=== PATIENT | female | born 1945 | race Caucasian/White ===

== ENCOUNTER 2017-12-20 20:46 | Inpatient (IN) | payer OTHER ==
[2017-12-20 21:04] LABS: ADD MAN DIFF? NO
[2017-12-20] MEDS: LEVALBUTEROL (NEB) 1.25 MG/0.5 ML AMP HHN (21:04)
[2017-12-20 21:06] LABS: WHITE BLOOD COUNT 16.2 10^3/ul (4.8-10.8)
[2017-12-20 21:06] LABS: ABNORMAL IP MESSAGE 1; HEMATOCRIT 43.1 % (37.0-47.0); HEMOGLOBIN 13.9 g/dl (12.0-16.0); MEAN CORPUSCULAR HEMOGLOBIN 29.3 pg (29.0-33.0); MEAN CORPUSCULAR HGB CONC 32.3 g/dl (32.0-37.0); MEAN CORPUSCULAR VOLUME 90.9 fl (82.0-101.0); MEAN PLATELET VOLUME 10.5 fl (7.4-10.4); PLATELET COUNT 367 10^3/UL (140-415); RED BLOOD COUNT 4.74 10^6/ul (4.20-5.40); RED CELL DISTRIBUTION WIDTH 13.4 % (11.5-14.5)
[2017-12-20 21:12] LABS: POSITIVE DIFF @See below
[2017-12-20] MEDS: LORAZEPAM 2 MG INJ IV (21:15)
[2017-12-20 21:29] LABS: ANION GAP 24 (8-16); BLOOD UREA NITROGEN 12 mg/dl (7-20); CALCIUM 9.3 mg/dl (8.4-10.2); CARBON DIOXIDE 16 mmol/L (21-31); CHLORIDE 101 mmol/L (97-110); CREATININE 0.97 mg/dl (0.44-1.00); GLUCOSE 356 mg/dl (70-220); SODIUM 137 mmol/L (135-144)
[2017-12-20 21:40] LABS: B-TYPE NATRIURETIC PEPTIDE 124 PG/ML (0-125); TROPONIN-I 0.115 ng/ml (0.000-0.120)
[2017-12-20 21:46] LABS: AADO2 Arterial 96.2 mmHg (7.0-24.0); Arterial Base Excess -13.4 mmol/L (-3.0-3); Arterial Blood Gas Oxygen Sat 93.9 mmHG (95.0-100.0); Arterial COHb 0.1 % (0.0-3.0); Arterial Fraction of Oxyhgb 93.5 % (93.0-99.0); Arterial MetHb 0.3 % (0.0-1.5); Arterial Total Hemglobin 14.8 g/dl (12.0-18.0); Arterial pCO2 43.6 mmhg (35-45); MODE NASAL CANNULA; Site Right Brachial
[2017-12-20] MEDS: SOD CHLORIDE 0.9% 100 ML (22:01)
[2017-12-20] MEDS: IOHEXOL 100 ML (22:01)
[2017-12-20 22:27] LABS: ANISOCYTOSIS 1+ (0-0); BAND NEUTROPHILS #M 0.6 10^3/ul (0.0-0.6); BAND NEUTROPHILS % (M) 4 % (0-4); EOSINOPHILS % (M) 1 % (0-7); LYMPHOCYTES #M 6.4 10^3/ul (0.8-2.9); LYMPHOCYTES % (M) 40 % (15-51); MONOCYTE #M 0.8 10^3/ul (0.3-0.9); MONOCYTES % (M) 5 % (0-11); PLATELET ESTIMATE NORMAL; POIKILOCYTOSIS 1+ (0-0); REACTIVE LYMPHOCYTES #M 0.4 10^3/ul (0.0-0.0); REACTIVE LYMPHOCYTES% (M) 3 % (0-0); SEG NEUT #M 7.7 10^3/ul (1.6-7.5); SEGMENTED NEUTROPHILS (M) % 47 % (39-77); SMUDGE%M 10 % (0-0)
[2017-12-20] MEDS ORDERED: SODIUM CHLORIDE 0.9% 1L BAG IV* (22:35)
[2017-12-20] MEDS ORDERED: SOD CHLORIDE 0.9% 1,000 ML IV (23:00)
[2017-12-20] MEDS: CEFEPIME 2GM/50 ML (PMX) 50 ML IVPB (23:05)
[2017-12-20 23:26] LABS: INR 0.92; PROTIME 12.4 Sec (11.9-14.9)
[2017-12-20 23:27] LABS: PARTIAL THROMBOPLASTIN TIME 24.2 Sec (25.0-35.0)
[2017-12-20 23:39] LABS: ALANINE AMINOTRANSFERASE 28 IU/L (13-69); ALBUMIN 3.7 g/dl (3.3-4.9); ALBUMIN/GLOBULIN RATIO 1.37; ALKALINE PHOSPHATASE 74 IU/L (42-121); ANION GAP 18 (8-16); ASPARTATE AMINO TRANSFERASE 50 IU/L (15-46); BILIRUBIN,INDIRECT 0.3 mg/dl (0-1.1); BILIRUBIN,TOTAL 0.3 mg/dl (0.2-1.3); BLOOD UREA NITROGEN 14 mg/dl (7-20); CALCIUM 9.2 mg/dl (8.4-10.2); CARBON DIOXIDE 23 mmol/L (21-31); CHLORIDE 97 mmol/L (97-110); CREATININE 0.94 mg/dl (0.44-1.00); GLUCOSE 300 mg/dl (70-220); POTASSIUM 3.4 mmol/L (3.5-5.1); SODIUM 135 mmol/L (135-144); TOTAL PROTEIN 6.4 g/dl (6.1-8.1)
[2017-12-20 23:40] LABS: LACTIC ACID 5.9 mmol/L (0.5-2.0)
[2017-12-20 23:54] LABS: Arterial Base Excess -8.6 mmol/L (-3.0-3); Arterial Blood Gas Oxygen Sat 95.1 mmHG (95.0-100.0); Arterial COHb 0 % (0.0-3.0); Arterial Fraction of Oxyhgb 94.9 % (93.0-99.0); Arterial HCO3 15.9 mmol/L (22.0-26.0); Arterial MetHb 0.2 % (0.0-1.5); Arterial Total Hemglobin 15.3 g/dl (12.0-18.0); Arterial pCO2 30.5 mmhg (35-45); Blood Gas IEPAP 15/5; Blood Gas PS 10; MODE MASK - BIPAP; Site Right Brachial
[2017-12-21] MEDS ORDERED: BISACODYL (EC) 5 MG TAB PO (00:30)
[2017-12-21] MEDS ORDERED: ACETAMINOPHEN 650MG/20.3ML CUP PO (00:30)
[2017-12-21] MEDS ORDERED: ONDANSETRON 4 MG INJ IV (00:30)
[2017-12-21] MEDS ORDERED: DOCUSATE SODIUM 100 MG CAP PO (00:30)
[2017-12-21] MEDS ORDERED: GLUCOSE GEL 15 GRAM TUBE PO ×2 (01:00)
[2017-12-21] MEDS ORDERED: GLUCOSE GEL 15 GRAM TUBE BUCCAL (01:00)
[2017-12-21] MEDS ORDERED: GLUCAGON 1 MG INJ IM (01:00)
[2017-12-21] MEDS ORDERED: DEXTROSE 50% 50 ML SYRINGE IV ×2 (01:00)
[2017-12-21] MEDS ORDERED: VANCOMYCIN IV PER PHARMACY XX (01:30)
[2017-12-21] MEDS: LEVALBUTEROL (NEB) 0.63 MG/3 ML AMP HHN ×4 (01:40→13:00)
[2017-12-21] MEDS: SOD CHLORIDE 0.9% 1,000 ML IV (01:46)
[2017-12-21] MEDS: ALBUMIN HUMAN 25% 100 ML IV ×2 (01:47→03:45)
[2017-12-21] MEDS: METHYLPREDNISOLONE 40 MG INJ IV ×3 (01:48→20:50)
[2017-12-21] MEDS: LORAZEPAM 2 MG INJ IV ×4 (01:48→21:47)
[2017-12-21] MEDS ORDERED: ACCU-CHEK XX (02:00)
[2017-12-21] MEDS: POTASSIUM CHLORIDE (SR) 20 MEQ TAB PO (02:02)
[2017-12-21] MEDS: VANCOMYCIN 1.25 GM in SOD CHLORIDE 0.9% 250 ML IVPB (02:05)
[2017-12-21] MEDS: INSULIN REGULAR, HUMAN 100 UNIT/1 ML 3ML VIAL IV (02:06)
[2017-12-21] MEDS: INSULIN ASPART [NOVOLOG] 3 ML PEN SC ×6 (02:07→21:00)
[2017-12-21 02:25] LABS: LACTIC ACID 5.4 mmol/L (0.5-2.0)
[2017-12-21] MEDS: PANTOPRAZOLE 40 MG INJ IV (05:02)
[2017-12-21] MEDS: SOD CHLORIDE 0.9% 500 ML IV ×3 (05:03→23:48)
[2017-12-21 05:39] LABS: ADD MAN DIFF? NO
[2017-12-21 05:41] LABS: WHITE BLOOD COUNT 14.3 10^3/ul (4.8-10.8)
[2017-12-21 05:41] LABS: BASOPHILS % 0.1 % (0.0-2.0); HEMATOCRIT 34.3 % (37.0-47.0); HEMOGLOBIN 11.4 g/dl (12.0-16.0); LYMPHOCYTES # 0.7 10^3/ul (0.8-2.9); LYMPHOCYTES % 4.9 % (15.0-51.0); MEAN CORPUSCULAR HEMOGLOBIN 29.2 pg (29.0-33.0); MEAN CORPUSCULAR HGB CONC 33.2 g/dl (32.0-37.0); MEAN CORPUSCULAR VOLUME 87.9 fl (82.0-101.0); MEAN PLATELET VOLUME 10.4 fl (7.4-10.4); MONOCYTE # 0.5 10^3/ul (0.3-0.9); MONOCYTES % 3.4 % (0.0-11.0); PLATELET COUNT 277 10^3/UL (140-415); RED CELL DISTRIBUTION WIDTH 14.1 % (11.5-14.5)
[2017-12-21 06:13] LABS: LACTIC ACID 4.4 mmol/L (0.5-2.0)
[2017-12-21 06:18] LABS: CREATINE KINASE 157 IU/L (23-200)
[2017-12-21 06:20] LABS: ALANINE AMINOTRANSFERASE 23 IU/L (13-69); ALBUMIN 4.4 g/dl (3.3-4.9); ALBUMIN/GLOBULIN RATIO 1.83; ALKALINE PHOSPHATASE 47 IU/L (42-121); ANION GAP 18 (8-16); ASPARTATE AMINO TRANSFERASE 46 IU/L (15-46); BILIRUBIN,INDIRECT 0.5 mg/dl (0-1.1); BILIRUBIN,TOTAL 0.5 mg/dl (0.2-1.3); BLOOD UREA NITROGEN 18 mg/dl (7-20); CALCIUM 9.1 mg/dl (8.4-10.2); CARBON DIOXIDE 23 mmol/L (21-31); CHLORIDE 102 mmol/L (97-110); CREATININE 0.84 mg/dl (0.44-1.00); GLUCOSE 139 mg/dl (70-220); MAGNESIUM 1.8 mg/dl (1.7-2.5); POTASSIUM 4.4 mmol/L (3.5-5.1); SODIUM 139 mmol/L (135-144); TOTAL PROTEIN 6.8 g/dl (6.1-8.1)
[2017-12-21 06:26] LABS: CK INDEX 5.8; CK-MB 9.17 ng/ml (0.0-2.4)
[2017-12-21] MEDS ORDERED: morphine 2 MG INJ (07:00)
[2017-12-21] MEDS ORDERED: SUCCINYLCHOLINE CHLORIDE 100 MG/5 ML SYG IV (07:00)
[2017-12-21] MEDS: HEPARIN 1000 UNITS/ML 10 ML INJ IV (07:00)
[2017-12-21] MEDS ORDERED: EPINEPHrine 0.1 MG/ML SYG (07:00)
[2017-12-21] MEDS ORDERED: FUROSEMIDE 20 MG INJ (07:02)
[2017-12-21] MEDS: morphine 2 MG INJ IV (07:09)
[2017-12-21] MEDS ORDERED: PROPOFOL 100 ML IV (07:30)
[2017-12-21] MEDS ORDERED: PROPOFOL 100 ML (07:33)
[2017-12-21] MEDS: FUROSEMIDE 20 MG INJ IV ×2 (07:56→07:57)
[2017-12-21] MEDS ORDERED: LEVOFLOXACIN 750MG/D5W (PMX) 150 ML IVPB (08:00)
[2017-12-21 08:16] LABS: HEMOGLOBIN A1C 5.9 % (0-5.9)
[2017-12-21] MEDS: LEVALBUTEROL (HFA) 15 GM INHALER INH ×3 (08:24→21:20)
[2017-12-21] MEDS: PROPOFOL 100 ML IV ×2 (08:25→15:37)
[2017-12-21 08:27] LABS: ADD MAN DIFF? NO
[2017-12-21 08:28] LABS: WHITE BLOOD COUNT 21.3 10^3/ul (4.8-10.8)
[2017-12-21 08:28] LABS: BASOPHIL # 0.1 10^3/ul (0.0-0.1); BASOPHILS % 0.2 % (0.0-2.0); EOSINOPHILS % 0.2 % (0.0-7.0); HEMATOCRIT 38.7 % (37.0-47.0); HEMOGLOBIN 12.4 g/dl (12.0-16.0); LYMPHOCYTES # 3.6 10^3/ul (0.8-2.9); LYMPHOCYTES % 16.7 % (15.0-51.0); MEAN CORPUSCULAR HEMOGLOBIN 30.6 pg (29.0-33.0); MEAN CORPUSCULAR VOLUME 95.6 fl (82.0-101.0); MONOCYTE # 0.9 10^3/ul (0.3-0.9); MONOCYTES % 4.2 % (0.0-11.0); NEUTROPHIL # 16.2 10^3/ul (1.6-7.5); NEUTROPHILS % 76.1 % (39.0-77.0); NUCLEATED RED BLOOD CELLS% 0.1 /100WBC (0.0-0.0); PLATELET COUNT 285 10^3/UL (140-415); RED BLOOD COUNT 4.05 10^6/ul (4.20-5.40); RED CELL DISTRIBUTION WIDTH 13.9 % (11.5-14.5)
[2017-12-21 08:29] LABS: AADO2 Arterial 522.1 mmHg (7.0-24.0); Arterial Base Excess -21.2 mmol/L (-3.0-3); Arterial Blood Gas Oxygen Sat 92.4 mmHG (95.0-100.0); Arterial COHb 0.3 % (0.0-3.0); Arterial Fraction of Oxyhgb 91.8 % (93.0-99.0); Arterial MetHb 0.4 % (0.0-1.5); Arterial Total Hemglobin 13.8 g/dl (12.0-18.0); Arterial pCO2 84.3 mmhg (35-45); MODE VENT - AC; Site Right Brachial
[2017-12-21] MEDS ORDERED: NA BICARBONATE 8.4% 50 ML SYG (08:39)
[2017-12-21 08:47] LABS: INR 1.13; PROTIME 14.7 Sec (11.9-14.9); PT RATIO 1.1
[2017-12-21 08:49] LABS: PARTIAL THROMBOPLASTIN TIME 52.4 Sec (25.0-35.0)
[2017-12-21] MEDS ORDERED: ENOXAPARIN 30 MG/0.3 ML SYG SC (09:00)
[2017-12-21 09:05] LABS: LACTIC ACID 11.9 mmol/L (0.5-2.0)
[2017-12-21 09:05] LABS: ALANINE AMINOTRANSFERASE 16 IU/L (13-69); ALBUMIN/GLOBULIN RATIO 1.73; ALKALINE PHOSPHATASE 49 IU/L (42-121); ANION GAP 28 (8-16); ASPARTATE AMINO TRANSFERASE 67 IU/L (15-46); BILIRUBIN,INDIRECT 0.3 mg/dl (0-1.1); BILIRUBIN,TOTAL 0.3 mg/dl (0.2-1.3); BLOOD UREA NITROGEN 17 mg/dl (7-20); CALCIUM 8.3 mg/dl (8.4-10.2); CARBON DIOXIDE 14 mmol/L (21-31); CHLORIDE 102 mmol/L (97-110); CREATINE KINASE 230 IU/L (23-200); CREATININE 1.27 mg/dl (0.44-1.00); MAGNESIUM 2.1 mg/dl (1.7-2.5); POTASSIUM 4.5 mmol/L (3.5-5.1); SODIUM 139 mmol/L (135-144); TOTAL PROTEIN 6.3 g/dl (6.1-8.1)
[2017-12-21 09:09] LABS: GLUCOSE 402 mg/dl (70-220)
[2017-12-21 09:12] LABS: CREATINE KINASE 221 IU/L (23-200)
[2017-12-21 09:17] LABS: CK INDEX 4.5
[2017-12-21 09:19] LABS: CK INDEX 4.6
[2017-12-21] MEDS: FENTAnyl (DRIP) 1000 mcg/100mL 100 ML IV (09:27)
[2017-12-21] MEDS: NA BICARBONATE 8.4% 50 ML SYG IV ×3 (09:32→14:56)
[2017-12-21 09:48] LABS: B-TYPE NATRIURETIC PEPTIDE 2750 PG/ML (0-125)
[2017-12-21 10:53] LABS: AADO2 Arterial 545.1 mmHg (7.0-24.0); Arterial Base Excess -9.3 mmol/L (-3.0-3); Arterial Blood Gas Oxygen Sat 90.9 mmHG (95.0-100.0); Arterial COHb 0.3 % (0.0-3.0); Arterial Fraction of Oxyhgb 90.4 % (93.0-99.0); Arterial HCO3 23.2 mmol/L (22.0-26.0); Arterial MetHb 0.3 % (0.0-1.5); Arterial Total Hemglobin 14.6 g/dl (12.0-18.0); Arterial pCO2 86.6 mmhg (35-45); MODE VENT - AC; Site Right Brachial
[2017-12-21] MEDS ORDERED: PHENYLephrine 40 MG in DEXTROSE 5% 496 ML IV (11:30)
[2017-12-21 12:21] LABS: AADO2 Arterial 371.4 mmHg (7.0-24.0); Allen Test ACCEPTAB; Arterial Base Excess -7.2 mmol/L (-3.0-3); Arterial Blood Gas Oxygen Sat 90.9 mmHG (95.0-100.0); Arterial COHb 0 % (0.0-3.0); Arterial Fraction of Oxyhgb 90.6 % (93.0-99.0); Arterial HCO3 21.2 mmol/L (22.0-26.0); Arterial MetHb 0.3 % (0.0-1.5); Arterial Total Hemglobin 14.3 g/dl (12.0-18.0); Arterial pCO2 54.6 mmhg (35-45); MODE VENT - AC; Site Right Brachial
[2017-12-21] MEDS: LIDOCAINE 1% (MPF) 5 ML VIAL SC (12:40)
[2017-12-21] MEDS: SOD CHLORIDE 0.9% 100 ML (13:00)
[2017-12-21] MEDS ORDERED: HEPARIN 1000 UNITS/ML 10 ML INJ IV (13:00)
[2017-12-21] MEDS: ERTAPENEM SODIUM 1 GM in SOD CHLORIDE 0.9% 100 ML IVPB (14:10)
[2017-12-21] MEDS: PHENYLephrine 40 MG in DEXTROSE 5% 496 ML IV ×3 (14:17→22:19)
[2017-12-21] MEDS ORDERED: SODIUM BICARBONATE (IV ADD) 100 MEQ in DEXTROSE 5%-0.45% NACL 1,000 ML IV (15:00)
[2017-12-21 15:18] LABS: CREATINE KINASE 393 IU/L (23-200)
[2017-12-21 15:24] LABS: LACTIC ACID 5.7 mmol/L (0.5-2.0)
[2017-12-21 15:30] LABS: CK INDEX 4.6
[2017-12-21 15:58] LABS: PARTIAL THROMBOPLASTIN TIME 29.5 Sec (25.0-35.0)
[2017-12-21] MEDS: HEPARIN 25000 UNITS/250 ML 250 ML IV (16:25)
[2017-12-21] MEDS: SODIUM BICARBONATE (IV ADD) 100 MEQ in DEXTROSE 5%-0.45% NACL 900 ML IV (17:24)
[2017-12-21 19:04] LABS: LACTIC ACID 6.2 mmol/L (0.5-2.0)
[2017-12-21 19:18] LABS: ADD UMIC YES; UR ASCORBIC ACID NEGATIVE (NEGATIVE); UR BACTERIA FEW /HPF (NONE SEEN); UR BILIRUBIN (Dip) NEGATIVE (NEGATIVE); UR BLOOD (Dip) 3+ mg/dL (NEGATIVE); UR CLARITY CLOUDY (CLEAR); UR COLOR BLUE (YELLOW); UR GLUCOSE (Dip) 1+ mg/dL (NEGATIVE); UR KETONES (Dip) NEGATIVE (NEGATIVE); UR LEUKOCYTE ESTERASE (Dip) 3+ Leu/ul (NEGATIVE); UR MUCUS FEW /HPF (NONE SEEN); UR NITRITE (Dip) NEGATIVE (NEGATIVE); UR RBC 173 /HPF (0-5); UR TOTAL PROTEIN (Dip) 3+ mg/dl (NEGATIVE); UR UROBILINOGEN (Dip) NEGATIVE (NEGATIVE); UR WBC 135 /HPF (0-5)
[2017-12-21] MEDS: ATORVASTATIN 10 MG TAB PO (20:43)
[2017-12-21] MEDS ORDERED: NON-FORMULARY/PATIENT OWN MED (Simvastatin 20 MG) PO (21:00)
[2017-12-21 22:57] LABS: CREATINE KINASE 372 IU/L (23-200)
[2017-12-21 23:02] LABS: LACTIC ACID 4.5 mmol/L (0.5-2.0)
[2017-12-21 23:08] LABS: CK INDEX 3.1
[2017-12-22] MEDS: INSULIN ASPART [NOVOLOG] 3 ML PEN SC ×6 (01:16→21:39)
[2017-12-22] MEDS: LEVALBUTEROL (HFA) 15 GM INHALER INH ×4 (01:18→20:00)
[2017-12-22] MEDS: VANCOMYCIN 750 MG in SOD CHLORIDE 0.9% 150 ML IVPB (02:33)
[2017-12-22] MEDS: PHENYLephrine 40 MG in DEXTROSE 5% 496 ML IV ×2 (02:36→10:34)
[2017-12-22 03:43] LABS: ADD MAN DIFF? NO
[2017-12-22 04:03] LABS: BASOPHILS % 0.1 % (0.0-2.0); HEMATOCRIT 31.8 % (37.0-47.0); HEMOGLOBIN 10.7 g/dl (12.0-16.0); LYMPHOCYTES % 5.9 % (15.0-51.0); MEAN CORPUSCULAR HEMOGLOBIN 29.1 pg (29.0-33.0); MEAN CORPUSCULAR HGB CONC 33.6 g/dl (32.0-37.0); MEAN CORPUSCULAR VOLUME 86.4 fl (82.0-101.0); MEAN PLATELET VOLUME 10.9 fl (7.4-10.4); MONOCYTE # 0.8 10^3/ul (0.3-0.9); MONOCYTES % 4.7 % (0.0-11.0); NEUTROPHIL # 15.7 10^3/ul (1.6-7.5); NEUTROPHILS % 88.6 % (39.0-77.0); PLATELET COUNT 233 10^3/UL (140-415); RED BLOOD COUNT 3.68 10^6/ul (4.20-5.40); RED CELL DISTRIBUTION WIDTH 14.1 % (11.5-14.5)
[2017-12-22 04:03] LABS: WHITE BLOOD COUNT 17.8 10^3/ul (4.8-10.8)
[2017-12-22 04:10] LABS: PARTIAL THROMBOPLASTIN TIME 64.4 Sec (25.0-35.0)
[2017-12-22] MEDS: SODIUM BICARBONATE (IV ADD) 100 MEQ in DEXTROSE 5%-0.45% NACL 900 ML IV ×3 (04:18→18:55)
[2017-12-22] MEDS: FENTAnyl (DRIP) 1000 mcg/100mL 100 ML IV ×2 (04:23→21:44)
[2017-12-22] MEDS: PROPOFOL 100 ML IV ×3 (04:56→20:30)
[2017-12-22 06:14] LABS: ALANINE AMINOTRANSFERASE 44 IU/L (13-69); ALBUMIN 3.4 g/dl (3.3-4.9); ALKALINE PHOSPHATASE 50 IU/L (42-121); ANION GAP 18 (8-16); ASPARTATE AMINO TRANSFERASE 74 IU/L (15-46); BILIRUBIN,INDIRECT 0.3 mg/dl (0-1.1); BILIRUBIN,TOTAL 0.3 mg/dl (0.2-1.3); BLOOD UREA NITROGEN 17 mg/dl (7-20); CARBON DIOXIDE 23 mmol/L (21-31); CHLORIDE 102 mmol/L (97-110); CREATININE 0.74 mg/dl (0.44-1.00); GLUCOSE 209 mg/dl (70-220); MAGNESIUM 1.5 mg/dl (1.7-2.5); POTASSIUM 3.2 mmol/L (3.5-5.1); SODIUM 140 mmol/L (135-144); TOTAL PROTEIN 5.4 g/dl (6.1-8.1)
[2017-12-22 06:15] LABS: CHOLESTEROL 111 mg/dl (100-200)
[2017-12-22 06:15] LABS: CHOL/HDL RATIO 2.3 RATIO; HDL CHOLESTEROL 47 mg/dl (33-92); LDL CHOLESTEROL,CALCULATED 31 mg/dl; TRIGLYCERIDES 163 mg/dl (0-149)
[2017-12-22 06:25] LABS: CK-MB 8.79 ng/ml (0.0-2.4)
[2017-12-22] MEDS: PANTOPRAZOLE 40 MG INJ IV (06:36)
[2017-12-22 06:39] LABS: CK INDEX 2.2; CREATINE KINASE 395 IU/L (23-200)
[2017-12-22] MEDS ORDERED: POTASSIUM CHLORIDE 20 MEQ POWDER FOR ORAL SOLN NGT (08:30)
[2017-12-22] MEDS: TIOTROPIUM 18 MCG CAPSULE INHA DEV INH (09:00)
[2017-12-22 09:10] LABS: AADO2 Arterial 154.1 mmHg (7.0-24.0); Arterial Base Excess 3.7 mmol/L (-3.0-3); Arterial Blood Gas Oxygen Sat 97.8 mmHG (95.0-100.0); Arterial COHb 0.3 % (0.0-3.0); Arterial Fraction of Oxyhgb 97.3 % (93.0-99.0); Arterial HCO3 24.4 mmol/L (22.0-26.0); Arterial MetHb 0.2 % (0.0-1.5); Arterial Total Hemglobin 11.3 g/dl (12.0-18.0); Arterial pCO2 25.4 mmhg (35-45); MODE VENT - AC; Site Right Brachial
[2017-12-22] MEDS: ERTAPENEM SODIUM 1 GM in SOD CHLORIDE 0.9% 100 ML IVPB (10:08)
[2017-12-22] MEDS: LORAZEPAM 2 MG INJ IV ×3 (10:41→23:03)
[2017-12-22] MEDS: METHYLPREDNISOLONE 40 MG INJ IV ×2 (10:47→21:33)
[2017-12-22] MEDS: MAGNESIUM OXIDE 400 MG TAB NGT (10:47)
[2017-12-22] MEDS: POTASSIUM CHLORIDE 20 MEQ POWDER FOR ORAL SOLN NGT (10:47)
[2017-12-22] MEDS: ASPIRIN 81 MG TAB PO (10:48)
[2017-12-22] MEDS ORDERED: FUROSEMIDE 40 MG INJ (10:50)
[2017-12-22] MEDS: FUROSEMIDE 40 MG INJ IV ×2 (10:55→17:27)
[2017-12-22 11:28] LABS: AADO2 Arterial 423.5 mmHg (7.0-24.0); Arterial Base Excess 0.2 mmol/L (-3.0-3); Arterial Blood Gas Oxygen Sat 99.1 mmHG (95.0-100.0); Arterial COHb 0.3 % (0.0-3.0); Arterial Fraction of Oxyhgb 98.5 % (93.0-99.0); Arterial HCO3 25.6 mmol/L (22.0-26.0); Arterial MetHb 0.3 % (0.0-1.5); Arterial Total Hemglobin 11.7 g/dl (12.0-18.0); Arterial pCO2 44.1 mmhg (35-45); MODE VENT - AC; Site Right Brachial
[2017-12-22] MEDS: DIGOXIN 500 MCG INJ IV (12:34)
[2017-12-22] MEDS: ATORVASTATIN 10 MG TAB PO (21:32)
[2017-12-22] MEDS: PAROXETINE 20 MG TAB NGT (21:33)
[2017-12-22] MEDS: HEPARIN 25000 UNITS/250 ML 250 ML IV (21:44)
[2017-12-22] MEDS: MIDAZOLAM (DRIP) 50 mg/50 mL 50 ML IV (22:10)
[2017-12-23] MEDS: LORAZEPAM 2 MG INJ IV ×6 (01:34→23:22)
[2017-12-23] MEDS: LEVALBUTEROL (HFA) 15 GM INHALER INH ×4 (01:35→19:35)
[2017-12-23] MEDS: INSULIN ASPART [NOVOLOG] 3 ML PEN SC ×6 (01:41→20:49)
[2017-12-23] MEDS ORDERED: PROPOFOL 100 ML (04:50)
[2017-12-23 06:17] LABS: WHITE BLOOD COUNT 14.5 10^3/ul (4.8-10.8)
[2017-12-23 06:17] LABS: ABNORMAL IP MESSAGE 1; ADD MAN DIFF? NO; BASOPHILS % 0.1 % (0.0-2.0); HEMATOCRIT 30.6 % (37.0-47.0); LYMPHOCYTES # 0.5 10^3/ul (0.8-2.9); LYMPHOCYTES % 3.5 % (15.0-51.0); MEAN CORPUSCULAR HEMOGLOBIN 29.8 pg (29.0-33.0); MEAN CORPUSCULAR HGB CONC 32.7 g/dl (32.0-37.0); MEAN CORPUSCULAR VOLUME 91.1 fl (82.0-101.0); MEAN PLATELET VOLUME 11.1 fl (7.4-10.4); MONOCYTE # 0.7 10^3/ul (0.3-0.9); MONOCYTES % 4.9 % (0.0-11.0); PLATELET COUNT 180 10^3/UL (140-415); RED BLOOD COUNT 3.36 10^6/ul (4.20-5.40); RED CELL DISTRIBUTION WIDTH 14.4 % (11.5-14.5)
[2017-12-23 06:20] LABS: POSITIVE DIFF @See below
[2017-12-23] MEDS: PROPOFOL 100 ML IV ×3 (06:24→23:21)
[2017-12-23] MEDS: PANTOPRAZOLE 40 MG INJ IV (06:31)
[2017-12-23] MEDS: FUROSEMIDE 40 MG INJ IV ×3 (06:31→17:41)
[2017-12-23] MEDS: SODIUM BICARBONATE (IV ADD) 100 MEQ in DEXTROSE 5%-0.45% NACL 900 ML IV ×3 (06:31→23:30)
[2017-12-23 06:41] LABS: ALANINE AMINOTRANSFERASE 34 IU/L (13-69); ALBUMIN/GLOBULIN RATIO 1.36; ALKALINE PHOSPHATASE 47 IU/L (42-121); ANION GAP 11 (8-16); ASPARTATE AMINO TRANSFERASE 42 IU/L (15-46); BILIRUBIN,INDIRECT 0.7 mg/dl (0-1.1); BILIRUBIN,TOTAL 0.7 mg/dl (0.2-1.3); BLOOD UREA NITROGEN 14 mg/dl (7-20); CALCIUM 7.6 mg/dl (8.4-10.2); CARBON DIOXIDE 33 mmol/L (21-31); CHLORIDE 99 mmol/L (97-110); CREATININE 0.59 mg/dl (0.44-1.00); GLUCOSE 139 mg/dl (70-220); MAGNESIUM 1.6 mg/dl (1.7-2.5); POTASSIUM 3.2 mmol/L (3.5-5.1); SODIUM 140 mmol/L (135-144); TOTAL PROTEIN 5.2 g/dl (6.1-8.1)
[2017-12-23 06:45] LABS: CREATINE KINASE 223 IU/L (23-200)
[2017-12-23 06:53] LABS: CK INDEX 1.2
[2017-12-23 06:57] LABS: TROPONIN-I 0.601 ng/ml (0.000-0.120)
[2017-12-23 07:11] LABS: LACTIC ACID 3.9 mmol/L (0.5-2.0)
[2017-12-23] MEDS: TIOTROPIUM 18 MCG CAPSULE INHA DEV INH (09:00)
[2017-12-23] MEDS: METHYLPREDNISOLONE 40 MG INJ IV ×2 (09:25→20:43)
[2017-12-23] MEDS: ASPIRIN 81 MG TAB PO (09:43)
[2017-12-23] MEDS: ERTAPENEM SODIUM 1 GM in SOD CHLORIDE 0.9% 100 ML IVPB (09:57)
[2017-12-23] MEDS: MAGNESIUM OXIDE 400 MG TAB NGT (11:14)
[2017-12-23] MEDS: POTASSIUM CHLORIDE 20 MEQ POWDER FOR ORAL SOLN GTB ×2 (11:14→16:07)
[2017-12-23 13:53] LABS: PARTIAL THROMBOPLASTIN TIME 64.3 Sec (25.0-35.0)
[2017-12-23 13:56] LABS: LACTIC ACID 2.8 mmol/L (0.5-2.0)
[2017-12-23 16:39] LABS: LACTIC ACID 2.4 mmol/L (0.5-2.0)
[2017-12-23] MEDS: FENTAnyl (DRIP) 1000 mcg/100mL 100 ML IV (17:45)
[2017-12-23 19:44] LABS: PARTIAL THROMBOPLASTIN TIME 63.2 Sec (25.0-35.0)
[2017-12-23] MEDS: ATORVASTATIN 10 MG TAB PO (20:43)
[2017-12-23] MEDS: PAROXETINE 20 MG TAB NGT (20:43)
[2017-12-23] MEDS: IOHEXOL 100 ML (21:47)
[2017-12-23] MEDS: SOD CHLORIDE 0.9% 100 ML (21:47)
[2017-12-23] MEDS: HEPARIN 25000 UNITS/250 ML 250 ML IV (23:25)
[2017-12-24] MEDS: LEVALBUTEROL (HFA) 15 GM INHALER INH ×2 (01:59→07:56)
[2017-12-24] MEDS: INSULIN ASPART [NOVOLOG] 3 ML PEN SC ×4 (02:11→13:02)
[2017-12-24 05:29] LABS: ADD MAN DIFF? NO
[2017-12-24 05:35] LABS: ABNORMAL IP MESSAGE 1; HEMATOCRIT 26.8 % (37.0-47.0); HEMOGLOBIN 8.9 g/dl (12.0-16.0); LYMPHOCYTES # 0.6 10^3/ul (0.8-2.9); LYMPHOCYTES % 6.3 % (15.0-51.0); MEAN CORPUSCULAR HEMOGLOBIN 30.1 pg (29.0-33.0); MEAN CORPUSCULAR HGB CONC 33.2 g/dl (32.0-37.0); MEAN CORPUSCULAR VOLUME 90.5 fl (82.0-101.0); MEAN PLATELET VOLUME 12.2 fl (7.4-10.4); MONOCYTE # 0.4 10^3/ul (0.3-0.9); NEUTROPHIL # 8.2 10^3/ul (1.6-7.5); NEUTROPHILS % 88.9 % (39.0-77.0); PLATELET COUNT 135 10^3/UL (140-415); RED BLOOD COUNT 2.96 10^6/ul (4.20-5.40); RED CELL DISTRIBUTION WIDTH 14.1 % (11.5-14.5)
[2017-12-24 05:35] LABS: WHITE BLOOD COUNT 9.2 10^3/ul (4.8-10.8)
[2017-12-24 05:44] LABS: POSITIVE DIFF @See below
[2017-12-24 05:52] LABS: ALANINE AMINOTRANSFERASE 32 IU/L (13-69); ALBUMIN 2.7 g/dl (3.3-4.9); ALBUMIN/GLOBULIN RATIO 1.22; ALKALINE PHOSPHATASE 52 IU/L (42-121); ANION GAP 12 (8-16); ASPARTATE AMINO TRANSFERASE 23 IU/L (15-46); BILIRUBIN,INDIRECT 0.6 mg/dl (0-1.1); BILIRUBIN,TOTAL 0.6 mg/dl (0.2-1.3); BLOOD UREA NITROGEN 17 mg/dl (7-20); CALCIUM 7.2 mg/dl (8.4-10.2); CARBON DIOXIDE 33 mmol/L (21-31); CHLORIDE 93 mmol/L (97-110); CREATININE 0.57 mg/dl (0.44-1.00); GLUCOSE 178 mg/dl (70-220); MAGNESIUM 1.8 mg/dl (1.7-2.5); SODIUM 135 mmol/L (135-144); TOTAL PROTEIN 4.9 g/dl (6.1-8.1)
[2017-12-24] MEDS: FUROSEMIDE 40 MG INJ IV (06:06)
[2017-12-24] MEDS: PANTOPRAZOLE 40 MG INJ IV (06:06)
[2017-12-24 06:12] LABS: POTASSIUM 2.7 mmol/L (3.5-5.1)
[2017-12-24 06:59] LABS: PARTIAL THROMBOPLASTIN TIME 70.1 Sec (25.0-35.0)
[2017-12-24] MEDS: POTASSIUM CHLORIDE 50 ML IVPB ×3 (07:43→11:40)
[2017-12-24 08:08] LABS: AADO2 Arterial 140.4 mmHg (7.0-24.0); Allen Test ACCEPTAB; Arterial Base Excess 11.2 mmol/L (-3.0-3); Arterial Blood Gas Oxygen Sat 97.3 mmHG (95.0-100.0); Arterial COHb 0.3 % (0.0-3.0); Arterial Fraction of Oxyhgb 96.7 % (93.0-99.0); Arterial HCO3 34.6 mmol/L (22.0-26.0); Arterial MetHb 0.3 % (0.0-1.5); Arterial Total Hemglobin 10.2 g/dl (12.0-18.0); Arterial pCO2 40.4 mmhg (35-45); MODE VENT - AC; Site Right Radial
[2017-12-24] MEDS: FENTAnyl (DRIP) 1000 mcg/100mL 100 ML IV (08:58)
[2017-12-24] MEDS: TIOTROPIUM 18 MCG CAPSULE INHA DEV INH (09:00)
[2017-12-24] MEDS: METHYLPREDNISOLONE 40 MG INJ IV (09:13)
[2017-12-24] MEDS: ASPIRIN 81 MG TAB PO (09:13)
[2017-12-24] MEDS: ERTAPENEM SODIUM 1 GM in SOD CHLORIDE 0.9% 100 ML IVPB (09:18)
[2017-12-24 09:43] LABS: LACTIC ACID 2.4 mmol/L (0.5-2.0)
[2017-12-24] MEDS: PROPOFOL 100 ML IV ×2 (10:35→14:58)
[2017-12-24] MEDS: SODIUM BICARBONATE (IV ADD) 100 MEQ in DEXTROSE 5%-0.45% NACL 900 ML IV (11:41)
== END 2017-12-24 16:19 | disposition short-term general hospital (02) | DRG 871 ==
LOC: E/R 20:46 → ICU 12-21 00:05
PROC: 02HV33Z Insertion of Infusion Device into Superior Vena Cava, Percutaneous Approach (ICD-10-PCS; principal; 2017-12-21)
PROC: 5A1945Z Respiratory Ventilation, 24-96 Consecutive Hours (ICD-10-PCS; 2017-12-21)
PROC: 0BH17EZ Insertion of Endotracheal Airway into Trachea, Via Natural or Artificial Opening (ICD-10-PCS; 2017-12-21)
PROC: 5A12012 Performance of Cardiac Output, Single, Manual (ICD-10-PCS; 2017-12-21)
DX: A41.9 Sepsis, unspecified organism (principal); R65.21 Severe sepsis with septic shock; J96.01 Acute respiratory failure with hypoxia; I21.4 Non-ST elevation (NSTEMI) myocardial infarction; N17.0 Acute kidney failure with tubular necrosis; J18.9 Pneumonia, unspecified organism; I46.9 Cardiac arrest, cause unspecified; I50.23 Acute on chronic systolic (congestive) heart failure; J44.1 Chronic obstructive pulmonary disease with (acute) exacerbation; E87.4 Mixed disorder of acid-base balance; I11.0 Hypertensive heart disease with heart failure; E78.5 Hyperlipidemia, unspecified; K21.9 Gastro-esophageal reflux disease without esophagitis; E87.8 Other disorders of electrolyte and fluid balance, not elsewhere classified
CPT/HCPCS: 31500; 36415; 36569; 36600; 71045; 71275; 74018; 76937; 80048; 80053; 80061; 81001; 82550; 82553; 82803; 82962; 83036; 83605; 83735; 83880; 84443; 84484; 85025; 85610; 85730; 87040; 87081; 87086; 89220; 92950; 93005; 93306; 94002; 94003; 94640; 94660; 94664; 94770; 96365; 96375; 99291-25